=== PATIENT | female | born 1935 | race Caucasian/White ===

== ENCOUNTER 2022-02-17 13:26 | Observation (INO) ==
[2022-02-17] MEDS ORDERED: Ondansetron 4 MG/2 ML VIAL IVP PRN (15:56)
[2022-02-17] MEDS ORDERED: Naloxone 0.4 MG/ML INJ IVP PRN (15:56)
[2022-02-17] MEDS ORDERED: D5% in Water 1,000 ML IVC PRN (16:37)
[2022-02-17] MEDS ORDERED: Dextrose 4 GM Chewable Tablets PO PRN ×2 (16:37)
[2022-02-17] MEDS ORDERED: *HR* Dextrose 50 % in Water (Syg) 50 ML SYRINGE IVP PRN (16:37)
[2022-02-17] MEDS ORDERED: Perflutren Lipid Microsphere 1.3 ML in 0.9 % Sodium Chloride 8.7 ML IVP PRN (16:52)
[2022-02-17] MEDS ORDERED: Nitroglycerin 0.4 MG TAB.SUBL SL PRN (16:52)
[2022-02-17 17:06] LABS: Basophils # 0.1 K/mcL (0.0-0.2); Basophils % 0.9 %; Eosinophils # 0.4 K/mcL (0.0-0.6); Eosinophils % 6.5 %; Hematocrit 34.5 % (35.3-44.9); Hemoglobin 11.3 g/dL (11.5-15.4); Lymphocytes # 1.8 K/mcL (0.6-4.6); Lymphocytes % 33.7 %; Mean Corpuscular HGB Conc 32.8 g/dL (31.6-35.5); Mean Corpuscular Hemoglobin 29.7 pg (28.0-33.3); Mean Corpuscular Volume 90.8 fL (83.0-100.0); Mean Platelet Volume 9.9 fL (9.4-12.4); Monocytes # 0.5 K/mcL (0.0-1.3); Monocytes % 9.1 %; Neutrophils # 2.7 K/mcL (1.6-8.9); Platelet Count 264 K/mcL (140-400); Segmented Neutrophils % 49.8 %; White Blood Count 5.4 K/mcL (4.3-11.1)
[2022-02-17 17:20] LABS: INR 0.9
[2022-02-17 17:22] LABS: Activated Partial Thrombo Time 29.3 Seconds (26.0-36.0)
[2022-02-17 17:26] LABS: Estimated Average Glucose 189 mg/dl; Hemoglobin A1C 8.2 %
[2022-02-17 17:32] LABS: Albumin 3.4 g/dL (3.5-5.7); Albumin/Globulin Ratio 1.2 (1.1-2.2); Bilirubin,Total 0.2 mg/dL (0.3-1.0); Calcium 8.7 mg/dL (8.6-10.3); Globulin 2.8 g/dL (2.4-3.5); Potassium 3.7 mEq/L (3.5-5.1); Total Protein 6.2 g/dL (6.4-8.9)
[2022-02-17 17:36] LABS: Troponin I 0.09 ng/mL (< 0.04)
[2022-02-17 17:44] LABS: Bacteria,Urine Few per hpf (None-Few); Bilirubin,Urine Negative (Negative); Blood,Urine Trace (Negative); Calcium Oxalate Crystals,Urine Present per hpf; Clarity,Urine Turbid (Clear); Color,Urine Light-Yellow (Yellow); Glucose,Urine (UA) 70 mg/dL (Normal); Hyaline Casts,Urine Few per lpf (None Seen); Ketones,Urine Negative (Negative); Leukocyte Esterase,Urine Large (Negative); Mucus,Urine Few per lpf (None-Few); Nitrite,Urine Negative (Negative); PH,Urine 6.5 pH Units (5.0-8.0); Protein,Urine 100 mg/dL (Neg-Trace); RBC,Urine 0-3 per hpf (0-3); Specific Gravity,Urine 1.008 (1.010-1.025); Squamous Epithelial Cell,Urine Few per hpf (None-Few); Urobilinogen,Urine Normal (Normal); WBC,Urine 15-30 per hpf (0-3)
[2022-02-17] MEDS: amLODIPine 5 MG TABLET PO SCH (18:03)
[2022-02-17] MEDS: Aspirin 81 MG TAB.CHEW PO SCH (18:03)
[2022-02-17] MEDS: Insulin LISPRO 300 UNITS/3 ML VIAL SUBQ SCH (20:57)
[2022-02-18] MEDS: Levothyroxine 25 MCG TABLET PO SCH (06:31)
[2022-02-18] MEDS: Insulin LISPRO 300 UNITS/3 ML VIAL SUBQ SCH ×4 (07:35→21:13)
[2022-02-18] MEDS: amLODIPine 5 MG TABLET PO SCH (08:45)
[2022-02-18] MEDS: Aspirin 81 MG TAB.CHEW PO SCH (08:46)
[2022-02-18] MEDS ORDERED: amLODIPine 5 MG TABLET PO SCH (09:00)
[2022-02-18 14:01] LABS: Basophils # 0.1 K/mcL (0.0-0.2); Eosinophils # 0.4 K/mcL (0.0-0.6); Eosinophils % 5.9 %; Hematocrit 35.9 % (35.3-44.9); Hemoglobin 12.1 g/dL (11.5-15.4); Immature Granulocytes % 0.2 % (0-4); Lymphocytes # 1.4 K/mcL (0.6-4.6); Lymphocytes % 22.9 %; Mean Corpuscular HGB Conc 33.7 g/dL (31.6-35.5); Mean Corpuscular Hemoglobin 30.4 pg (28.0-33.3); Mean Corpuscular Volume 90.2 fL (83.0-100.0); Mean Platelet Volume 10.2 fL (9.4-12.4); Monocytes # 0.5 K/mcL (0.0-1.3); Monocytes % 7.5 %; Neutrophils # 3.7 K/mcL (1.6-8.9); Platelet Count 277 K/mcL (140-400); Red Blood Count 3.98 M/mcL (3.82-4.97); Red Cell Distribution Width 13.1 % (11.5-14.5); Segmented Neutrophils % 62.5 %
[2022-02-18 14:20] LABS: Calcium 8.7 mg/dL (8.6-10.3); Chol/HDL Ratio 3.7 (0-4.9); Potassium 3.6 mEq/L (3.5-5.1)
[2022-02-18] MEDS: cefTRIAXone 1,000 MG in Water for inj. (sterile) 10 ML IVP SCH (17:42)
[2022-02-18] MEDS: QUEtiapine Fumarate 25 MG TABLET PO ONE ×2 (18:18→18:23)
[2022-02-18] MEDS ORDERED: *HR* LORazepam 2 MG/ML VIAL IVP ONE (18:23)
[2022-02-18] MEDS ORDERED: Haloperidol Lactate 5 MG/ML VIAL IVP ONE (21:00)
[2022-02-19 07:15] VITALS: O2SAT 96
[2022-02-19] MEDS: Insulin LISPRO 300 UNITS/3 ML VIAL SUBQ SCH (07:31)
[2022-02-19] MEDS: Aspirin 81 MG TAB.CHEW PO SCH (08:05)
[2022-02-19] MEDS: Levothyroxine 25 MCG TABLET PO SCH (08:05)
[2022-02-19] MEDS: cefTRIAXone 1,000 MG in Water for inj. (sterile) 10 ML IVP SCH (08:05)
[2022-02-19 10:20] VITALS: BP 133/71; PULSE 75; TEMP 97.7
[2022-02-19] MEDS ORDERED: *HR* Heparin 5,000 UNIT/ML VIAL SQ SCH (18:00)
[2022-02-19] MEDS ORDERED: cephALEXin 250 MG/5 ML UDC PO SCH (21:00)
== END 2022-02-19 13:02 | disposition home or self-care (01) ==
LOC: 3ANU → SUATTDRO 15:35
PROVIDERS: ADMIT Internal Medicine; ATTEND General Practice